=== PATIENT | female | born 1950 ===

== ENCOUNTER 2017-12-12 12:30 | Emergency (ER) | payer BC ==
--- NOTE | 2017-12-12 14:35 | UC ---
Eye Complaint HPI - HPI Summary HPI Summary: 67 yo female removed contact lenses last PM She then took a tissue with make up remover on it and somewhat vigorously rubbed her eye liner to remove it during this process both eyes became red and her conjunctivae became gelatinous now her right eye is better and her left eye has improved - History of Current Complaint Chief Complaint: UCEye Stated Complaint: EYE COMPLAINT Time Seen by Provider: 12/12/17 14:25 Hx Obtained From: Patient Onset/Duration: Sudden Onset, Lasting Hours Timing: Constant Severity Initially: Moderate Severity Currently: Mild Pain Intensity: 2 Pain Scale Used: 0-10 Numeric Location of Injury: Conjunctiva Character: Dull Associated Signs And Symptoms: Positive: Swelling - gelatinous swelling - Risk Factors Penetrating Injury Risk Factor: Negative Globe Rupture Risk Factors: Negative Acute Glaucoma Risk Factors: Negative Optic Artery Occlusion Risk Factors: Negative - Allergies/Home Medications Allergies/Adverse Reactions: Allergies Allergy/AdvReac Type Severity Reaction Status Date / Time clopidogrel [From Plavix] Allergy Rash Verified 12/12/17 14:23 PMH/Surg Hx/FS Hx/Imm Hx Previously Healthy: Yes - Surgical History Surgical History: Yes Surgery Procedure, Year, and Place: right hip replacement appy - Family History Known Family History: Positive: Hypertension, Other - cerebral aneurysm - Social History Alcohol Use: Daily Substance Use Type: None Smoking Status (MU): Never Smoked Tobacco Review of Systems Constitutional: Negative Skin: Negative Eyes: Eye Redness ENT: Negative Respiratory: Negative Cardiovascular: Negative Gastrointestinal: Negative Genitourinary: Negative Motor: Negative Neurovascular: Negative Musculoskeletal: Negative Neurological: Negative Psychological: Negative Is Patient Immunocompromised?: No All Other Systems Reviewed And Are Negative: Yes Physical Exam Triage Information Reviewed: Yes Appearance: Well-Appearing, No Pain Distress, Well-Nourished Vital Signs: Initial Vital Signs Temp 98 F 12/12/17 14:19 Pulse 65 12/12/17 14:19 Resp 16 12/12/17 14:19 BP 138/65 12/12/17 14:19 Pulse Ox 100 12/12/17 14:19 Eyes: Positive: Conjunctiva Inflamed - L>R ENT: Negative: Nasal congestion, Nasal drainage, Trismus, Muffled voice, Hoarse voice Neck: Positive: Supple, Nontender, No Lymphadenopathy Respiratory: Positive: Lungs clear, Normal breath sounds, No respiratory distress Cardiovascular: Positive: RRR, No Murmur Musculoskeletal: Positive: ROM Intact, No Edema Neurological: Positive: Alert Psychological Exam: Normal Skin Exam: Normal Diagnostics - Laboratory Diagnostic Studies Completed/Ordered: fluroscein staining of left eye negative Eye Complaint Course/Dx - Differential Dx/Diagnosis Provider Diagnoses: chemosis L>R eye Discharge - Sign-Out/Discharge Documenting (check all that apply): Discharge/Admit/Transfer - Discharge Plan Condition: Stable Disposition: HOME Referrals: No Primary Care Phys,NOPCP [Primary Care Provider] - Additional Instructions: You have a condition called CHEMOSIS frequent cool compresses I suggest ZADITOR eye drops OTC See your senior contract specialist when you get home Sometimes steroid eye drops are needed but I am hopeful this will resolve without them No contact lens use until cleared - Billing Disposition and Condition Condition: STABLE Disposition: Home
[2017-12-12] MEDS ORDERED: Fluorescein Sod TOPICAL 0.6* 0.6 MG TEST OPHTHALMIC ONE (14:41)
== END 2017-12-12 15:10 | disposition home or self-care (01) ==
LOC: UCEAST 12:30
DX: H11.423 Conjunctival edema, bilateral (principal); Z88.8 Allergy status to other drugs, medicaments and biological substances
CPT/HCPCS: 99201; G0463